=== PATIENT | female | born 1945 | race Caucasian/White ===

== ENCOUNTER 2019-01-17 03:02 | Emergency (ER) | payer OTHER ==
[~2019-01-17] VITALS: Ht 157.5 cm; Wt 61.2 kg
--- NOTE | 2019-01-17 03:04 | NUR ---
BIBF. C/O "CHOKING AND SHORTNESS OF BREATH, HAS HISTORY OF IT" AOX.4 MD AT BEDSIDE.
[2019-01-17 03:22] VITALS: BP 150/64
[2019-01-17] MEDS ORDERED: LIDOCAINE VISCOUS 2% UD 15 ML UDC MM ONE (03:30)
--- NOTE | 2019-01-17 03:33 | NUR ---
XRAY AT BEDSIDE.
[2019-01-17] MEDS ORDERED: LIDOCAINE VISCOUS 2% UD 15 ML UDC ONE (04:41)
== END 2019-01-17 06:06 | disposition home or self-care (01) ==
LOC: ER 03:16
DX: R09.89 Other specified symptoms and signs involving the circulatory and respiratory systems (principal); Z98.890 Other specified postprocedural states
CPT/HCPCS: 70360-TC